=== PATIENT | female | born 1990 | race American Indian/Alaskan Native ===

== ENCOUNTER 2021-05-22 15:30 | Emergency (ER) | payer SELFPAY ==
[2021-05-22 16:42] LABS: Basophils % (Auto) 0.1 % (0.0-1.8); Eosinophils # (Auto) 0.1 K/mm3 (0.0-0.4); Eosinophils % (Auto) 1.9 % (0.0-4.3); Hematocrit 34.3 % (30.3-42.9); Hemoglobin 11.4 gm/dl (10.1-14.3); Lymphocytes # (Auto) 1.3 K/mm3 (1.2-5.4); Lymphocytes % (Auto) 28.2 % (13.4-35.0); Mean Corpuscular HGB Conc 33 % (30-34); Mean Corpuscular Volume 85 fl (79-97); Monocytes # (Auto) 0.4 K/mm3 (0.0-0.8); Monocytes % (Auto) 9.6 % (0.0-7.3); Platelet Count 142 K/mm3 (140-440); Red Blood Count 4.06 M/mm3 (3.65-5.03); Red Cell Distribution Width 14.2 % (13.2-15.2)
[2021-05-22 17:06] LABS: Alanine Aminotransferase 9 units/L (7-56); Albumin 4.3 g/dL (3.9-5); Blood Urea Nitrogen 7 mg/dL (7-17); Calcium 9.1 mg/dL (8.4-10.2); Hemolysis Index 28
[2021-05-22 17:07] LABS: BUN/Creatinine Ratio 14
[2021-05-22 19:21] VITALS: BP 106/61
--- NOTE | 2021-05-22 19:25 | Ultrasound Report ---
ULTRASOUND OBSTETRIC INDICATION / CLINICAL INFORMATION: , cramping, spotting. Clinical Gestational Age (GA) in weeks, days: 12 weeks 5 days TECHNIQUE: Transabdominal. COMPARISON: None available. FINDINGS: GESTATIONAL SAC: There is an oval fluid collection within the uterus measuring 3.4 cm in greatest neo meter. There are a few internal echoes within this fluid collection but no defined yolk sac or pole. The gestational sac diameter corresponds to 8 week 1 day measurement. Overall appearance is con sistent with an anembryonic EMBRYO/FETUS: No pole identified within the gestational sac.. ADNEXA: Both ovaries are well-visualized. There is a 1.6 cm complex mass within the left ovary probab ly representing complex corpus luteum cyst. FREE FLUID: None. ADDITIONAL FINDINGS: None. IMPRESSION: 1. 3.4 cm fluid collection within the uterus is present. The appearance is most suggestive of blighte d ovum but will need correlation with hCG levels. 2. No pole identified within the gestational sac. Signer Name: Mica Biggs MD Signed: 05/22/2021 7:21 PM Workstation Name: [id number]
--- NOTE | 2021-05-22 19:53 | Emergency Department Report ---
ED HPI - General Chief complaint: Vaginal Bleeding Stated complaint: ABD PAIN/POSS MISCARRIAGE/SPOTTING Time Seen by Provider: 05/22/21 15:52 Source: patient Mode of arrival: Ambulatory Limitations: No Limitations - History of Present Illness Initial comments: Patient is a 30-year-old female presents emergency room with complaints of lower abdominal cramping that began 2 days ago. She has associated vaginal spotting. She denies any heavy bleeding or passing clots. She states her last menstrual cycle was 02/22/2021. She states that she went to the [facility] on March 28 and had a positive urine test. She has not yet seen an INSTRUCTIONAL TECHNOLOGIST or had an ultrasound. She denies any fever, nausea, vomiting, diarrhea, urinary symptoms. No past medical history. No allergies to medications. G:/P: 2/A: 1 - Related Data Allergies Allergy/AdvReac Type Severity Reaction Status Date / Time No Known Allergies Allergy Verified 05/14/16 21:19 ED Review of Systems ROS: Stated complaint: ABD PAIN/POSS MISCARRIAGE/SPOTTING Other details as noted in HPI Comment: All other systems reviewed and negative ED Past Medical Hx - Past Medical History Previous Medical History?: Yes Hx Hypertension: No Hx Diabetes: No Hx Deep Vein Thrombosis: No Hx Renal Disease: No Hx Sickle Cell Disease: No Hx Seizures: No Hx Asthma: No - Surgical History Past Surgical History?: Yes Additional Surgical History: - Social History Smoking Status: Never Smoker Substance Use Type: None ED Physical Exam - General Limitations: No Limitations General appearance: alert, in no apparent distress - Head Head exam: Present: atraumatic, normocephalic - Eye Eye exam: Present: normal appearance - ENT ENT exam: Present: mucous membranes moist - Respiratory Respiratory exam: Present: normal lung sounds bilaterally. Absent: respiratory distress, wheezes, rales, rhonchi, stridor, chest wall tenderness, accessory muscle use, decreased breath sounds, prolonged expiratory - Cardiovascular Cardiovascular Exam: Present: regular rate, normal rhythm, normal heart sounds. Absent: systolic murmur, diastolic murmur, rubs, gallop - GI/Abdominal GI/Abdominal exam: Present: soft, normal bowel sounds. Absent: distended, tenderness, guarding, rebound, rigid - Neurological Exam Neurological exam: Present: alert, oriented X3 - Psychiatric Psychiatric exam: Present: normal affect, normal mood - Skin Skin exam: Present: warm, dry, intact ED Course Vital Signs 05/22/21 05/22/21 15:40 19:19 Temperature 98.9 F Pulse Rate 87 72 Respiratory 16 Rate Blood Pressure 123/70 Blood Pressure 106/61 [Left] O2 Sat by Pulse 100 100 Oximetry ED Medical Decision Making - Lab Data Result diagrams: 05/22/21 16:15 05/22/21 16:15 - Radiology Data Radiology results: report reviewed Ordering Physician: JAY RODRÍGUEZ Date of Service: 05/22/21 Procedure(s): US OB <= 14 weeks fetus Accession Number(s): [id number] cc: JAY RODRÍGUEZ ULTRASOUND OBSTETRIC INDICATION / CLINICAL INFORMATION: , cramping, spotting. Clinical Gestational Age (GA) in weeks, days: 12 weeks 5 days TECHNIQUE: Transabdominal. COMPARISON: None available. FINDINGS: GESTATIONAL SAC: There is an oval fluid collection within the uterus measuring 3.4 cm in greatest diameter. There are a few internal echoes within this fluid collection but no defined yolk sac or pole. The gestational sac diameter corresponds to 8 week 1 day m easurement. Overall appearance is consistent with an anembryonic EMBRYO/FETUS: No pole identified within the gestational sac.. ADNEXA: Both ovaries are well-visualized. There is a 1.6 cm complex mass within the left ovary probably representing complex corpus luteum cyst. FREE FLUID: None. ADDITIONAL FINDINGS: None. IMPRESSION: 1. 3.4 cm fluid collection within the uterus is present. The appearance is most suggestive of blighted ovum but will need correlation with hCG levels. 2. No pole identified within the gestational sac. Signer Name: Mica Biggs MD Signed: 05/22/2021 7:21 PM Workstation Name: [id number] Transcribed By: Dictated By: Mica Biggs MD Electronically Authenticated By: Mica Biggs MD Signed Date/Time: 05/22/211920 DD/ 15 TD/TT: - Medical Decision Making Patient is a 30-year-old female presents emergency room with complaints of lower abdominal cramping that began 2 days ago. She has associated vaginal spotting. She denies any heavy bleeding or passing clots. She states her last menstrual cycle was 02/22/2021. She states that she went to the health department on March 28 and had a positive urine test. She has not yet seen an INSTRUCTIONAL TECHNOLOGIST or had an ultrasound. She denies any fever, nausea, vomiting, diarrhea, urinary symptoms. No past medical history. No allergies to medications. G:/P: 2/A: 1. vitals are normal. No abdominal tenderness on exam, no guarding, no rebound, no rigidity, no peritoneal signs. [place] [address]. Patient is Rh+. OB ultrasound: 1. 3.4 cm fluid collection within the uterus is present. The appearance is most suggestive of blighted ovum but will need correlation with hCG levels. 2. No pole identified within the gestational sac. Discussed all results with patient and discussed ultrasound findings in detail with patient. Discussed the importance of very close INSTRUCTIONAL TECHNOLOGIST follow-up. Discussed the importance of returning to the emergency room in 2 days for repeat hCG quant and H&H if she is unable to follow-up with INSTRUCTIONAL TECHNOLOGIST. Discussed very strict return precautions in detail with patient. Advised patient Please follow-up with INSTRUCTIONAL TECHNOLOGIST. Please practice pelvic rest. Return to emergency room immediately for any new or worsening symptoms including but not limited to worsening pain, bleeding more than 1 pad an hour. Return to emergency room in the next 2 days for repeat of your lab test including your hcg quant and CBC. Critical care attestation.: If time is entered above; I have spent that time in minutes in the direct care of this critically ill patient, excluding procedure time. ED Disposition Clinical Impression: Anembryonic , Abdominal cramping, Vaginal spotting Disposition: 01 HOME / SELF CARE / HOMELESS Is pt being admited?: No Does the pt Need Aspirin: No Condition: Stable Instructions: Blighted Ovum Additional Instructions: Please follow-up with INSTRUCTIONAL TECHNOLOGIST. Please practice pelvic rest. Return to emergency room immediately for any new or worsening symptoms including but not limited to worsening pain, bleeding more than 1 pad an hour. Return to emergency room in the next 2 days for repeat of your lab test including your hcg quant and CBC. PAC [facility] in [place], [place] Address: [address] [place] [address] [address], [place] [address] Referrals: PRIMARY CAREMD [Primary Care Provider] - 2-3 Days TIGRE FERRARI MD [Staff Physician] - 2-3 Days Time of Disposition: 19:53 Print Language: BENGALI
== END 2021-05-22 20:23 | disposition home or self-care (01) ==
LOC: ED 15:30
DX: O26.851 Spotting complicating pregnancy, first trimester (principal); O02.0 Blighted ovum and nonhydatidiform mole; Z3A.12 12 weeks gestation of pregnancy
CPT/HCPCS: 36415; 76801; 76817; 80053; 84702; 85025; 86900; 86901; 99284

== ENCOUNTER 2021-05-25 07:19 | Emergency (ER) | payer SELFPAY ==
--- NOTE | 2021-05-25 08:14 | Emergency Department Report ---
ED Medical Clearance HPI - General Chief complaint: Medical Clearance Stated complaint: FOLLOW UP FROM MISCARRIAGE Time Seen by Provider: 05/25/21 08:11 Source: patient Mode of arrival: Ambulatory - History of Present Illness Initial comments: This is a 30-year-old -Japanese female who presents for repeat labs to follow-up on threatened miscarriage. Patient states she was seen in this emergency room 3 days ago and instructed to follow-up with an FEEDER ASSOCIATE or come back to the ER to rule out miscarriage. Last menstrual period was February 22, 2021, she is 12 or 13 weeks gestation, A1. She denies fever, chills, vaginal bleeding, abdominal pain, back pain, urinary frequency, urgency, discharge, or dysuria. Onset/Timin -: days(s) Reason for Medical Clearance: laboratory abnormality Traumatic Symptoms: denies traumatic injury Allergies/Adverse reactions: Allergies Allergy/AdvReac Type Severity Reaction Status Date / Time No Known Allergies Allergy Verified 05/14/16 21:19 ED Review of Systems ROS: Stated complaint: FOLLOW UP FROM MISCARRIAGE Other details as noted in HPI Constitutional: denies: chills, fever Respiratory: denies: cough, shortness of breath, wheezing Cardiovascular: denies: chest pain, palpitations Gastrointestinal: denies: abdominal pain, nausea, diarrhea Genitourinary: denies: urgency, dysuria, discharge Neurological: denies: headache, weakness, paresthesias Psychiatric: denies: anxiety, depression ED Past Medical Hx - Past Medical History Previous Medical History?: No Hx Hypertension: No Hx Diabetes: No Hx Deep Vein Thrombosis: No Hx Renal Disease: No Hx Sickle Cell Disease: No Hx Seizures: No Hx Asthma: No - Surgical History Past Surgical History?: Yes Additional Surgical History: - Social History Smoking Status: Never Smoker Substance Use Type: None ED Physical Exam - General Limitations: No Limitations General appearance: alert, in no apparent distress - Respiratory Respiratory exam: Present: normal lung sounds bilaterally. Absent: respiratory distress - Cardiovascular Cardiovascular Exam: Present: regular rate, normal rhythm. Absent: systolic murmur, diastolic murmur, rubs, gallop - GI/Abdominal GI/Abdominal exam: Present: soft, normal bowel sounds. Absent: distended, tend erness, guarding, rebound, rigid, organomegaly - Back Exam Back exam: Absent: CVA tenderness (R), CVA tenderness (L) - Neurological Exam Neurological exam: Present: alert, oriented X3, normal gait - Psychiatric Psychiatric exam: Present: normal affect, normal mood - Skin Skin exam: Present: warm, dry, intact, normal color. 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 Consulted FEEDER ASSOCIATE and spoke with Dr. Nichole who suggested patient wait for spontaneous or come into his office for a D&C. The patient agrees to follow-up in office for a D&C. Patient will be discharged home. ED Medical Decision Making - Lab Data Result diagrams: 05/25/21 08:46 Lab Results 05/25/21 05/25/21 Range/Units 08:46 08:46 WBC 5.9 (4.5-11.0) K/mm3 RBC 3.88 (3.65-5.03) M/mm3 Hgb 11.0 (10.1-14.3) gm/dl Hct 32.6 (30.3-42.9) % MCV 84 (79-97) fl MCH 28 (28-32) pg MCHC 34 (30-34) % RDW 14.2 (13.2-15.2) % Plt Count 140 (140-440) K/mm3 Lymph % (Auto) 21.2 (13.4-35.0) % [place] % (Auto) 8.4 H (0.0-7.3) % Eos % (Auto) 1.5 (0.0-4.3) % Baso % (Auto) 0.1 (0.0-1.8) % Lymph # (Auto) 1.2 (1.2-5.4) K/mm3 [place] # (Auto) 0.5 (0.0-0.8) K/mm3 Eos # (Auto) 0.1 (0.0-0.4) K/mm3 Baso # (Auto) 0.0 (0.0-0.1) K/mm3 Seg Neutrophils % 68.8 (40.0-70.0) % Seg Neutrophils # 4.0 (1.8-7.7) K/mm3 HCG, Quant 81433 H (0-4) mIU/mL Vital Signs 05/25/21 12:19 Temperature 99.3 F Pulse Rate 63 Respiratory 16 Rate Blood Pressure 125/79 [Left] O2 Sat by Pulse 100 Oximetry - Medical Decision Making This is a 30-year-old female that presents for follow-up of threatened miscarriage. Denies active vaginal bleeding. Vitals are stable and patient in no acute distress. Denies vaginal discharge, vaginal bleeding, hematuria, or UTI symptoms. Work-up: CBC & hCG quant. Urinalysis unremarkable, hCG quant [address]. OB ultrasound from 2 days ago shows blighted ovum. Patient was presented to the attending Dr. Clay who agreed with consulting OG/MANAGING COGNITIVE ENGINEER. Dr. Nichole was consulted for the patient to options. She can wait for spontaneous or come into his office for D&C. Patient agreed to follow-up in office for D&C. Patient was discharged home stable with strict return instructions. ED Disposition Clinical Impression: Blighted ovum Disposition: 01 HOME / SELF CARE / HOMELESS Is pt being admited?: No Condition: Stable Instructions: Blighted Ovum Additional Instructions: Follow-up with your FEEDER ASSOCIATE Dr. Nichole for D&C as discussed. Please call [phone] to make an appointment with his office. Referrals: SHREYA NICHOLE MD [Staff Physician] - 3-5 Days [facility] [Provider Group] - 3-5 Days Forms: Work/School Release Form(ED) Time of Disposition: 12:07
[2021-05-25 09:18] LABS: Basophils % (Auto) 0.1 % (0.0-1.8); Eosinophils # (Auto) 0.1 K/mm3 (0.0-0.4); Eosinophils % (Auto) 1.5 % (0.0-4.3); Hematocrit 32.6 % (30.3-42.9); Lymphocytes # (Auto) 1.2 K/mm3 (1.2-5.4); Lymphocytes % (Auto) 21.2 % (13.4-35.0); Mean Corpuscular HGB Conc 34 % (30-34); Mean Corpuscular Volume 84 fl (79-97); Monocytes # (Auto) 0.5 K/mm3 (0.0-0.8); Monocytes % (Auto) 8.4 % (0.0-7.3); Platelet Count 140 K/mm3 (140-440); Red Blood Count 3.88 M/mm3 (3.65-5.03); Red Cell Distribution Width 14.2 % (13.2-15.2)
[2021-05-25 12:20] VITALS: BP 125/79
== END 2021-05-25 12:27 | disposition home or self-care (01) ==
LOC: ED 07:19
DX: O02.0 Blighted ovum and nonhydatidiform mole (principal); Z79.899 Other long term (current) drug therapy; Z3A.12 12 weeks gestation of pregnancy
CPT/HCPCS: 36415; 84702; 85025; 99283

== ENCOUNTER 2021-06-01 08:25 | Emergency (ER) | payer OTHER ==
[2021-06-01] MEDS ORDERED: SODIUM CHLORIDE 0.9% 1000 ML 1,000 ML IV ONE (08:40)
--- NOTE | 2021-06-01 09:11 | Cat Scan Report ---
CT BRAIN: 06/01/2021 INDICATION / CLINICAL INFORMATION: headache s/p syncope episode. COMPARISON: None available. FINDINGS: BRAIN/INTRACRANIAL STRUCTURES: Unenhanced CT images of the brain demonstrate no evidence of acute int racranial abnormality. Ventricles and sulci are normal in size and shape. There is no evidence of acute ischemic injury, hemorrhage, or mass. There are no abnormal extra-axial fluid collections. EXTRACRANIAL STRUCTURES: Unremarkable. IMPRESSION: Negative unenhanced CT of the brain. All CT scans at this location are performed using dose reduction to ALARA by means of automated expos ure control. Signer Name: Armando Early MD Signed: 06/01/2021 9:07 AM Workstation Name: [id number]
--- NOTE | 2021-06-01 09:15 | Cat Scan Report ---
FACIAL CT 06/01/2021 HISTORY: headache s/p syncope episode. FINDINGS: CT images of the facial structures were obtained. Images are evaluated in the axial, velasquez l, and sagittal plane. There is no evidence of acute abnormality. Some mild mucosal thickening is present in ethmoid air cells. Paranasal sinuses are otherwise clear. There is no evidence of acute osseous injury. Visualized portions of the orbits and skull base are unremarkable. Incidental note is made of some so ft tissue density material within the osseous portions of the external auditory canals bilaterally, m ost likely cerumen. IMPRESSION: No significant abnormality. All CT scans at this location are performed using dose reduction to ALARA by means of automated expos ure control. Signer Name: Armando Early MD Signed: 06/01/2021 9:10 AM Workstation Name: [id number]
[2021-06-01 10:02] LABS: Hemoglobin 8.8 gm/dl (10.1-14.3); Mean Corpuscular HGB Conc 34 % (30-34); Mean Corpuscular Volume 84 fl (79-97); Platelet Count 126 K/mm3 (140-440); Red Blood Count 3.09 M/mm3 (3.65-5.03); Red Cell Distribution Width 14.5 % (13.2-15.2)
[2021-06-01 10:14] LABS: INR 1.05 (0.87-1.13)
--- NOTE | 2021-06-01 10:14 | Emergency Department Report ---
ED Syncope HPI - General Chief Complaint: Syncope Stated Complaint: MISCARRIAGE/FAINTED Time Seen by Provider: 06/01/21 08:35 Source: patient, RN notes reviewed Exam Limitations: no limitations - History of Present Illness Initial Comments: This is a 30-year-old female nontoxic, well nourished in appearance, no acute signs of distress presents to the ED with c/o of syncopal episode that occurred last night twice. Patient stated has some aching headaches. Patient stated prior to syncopal episode she had a miscarriage of sac that was seen and while passing this she became dizzy and had a syncopal episode. Patient stated that she did not seen some more blood in the toilet and then had a syncopal episode again which hit her left side of her face. Patient otherwise denies any other complaints or symptoms. Denies any neck or back pain. Patient stated that since last night her vaginal bleeding has significantly improved and are less. Patient denies any pelvic pain or abdominal pain. 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 Patient describes headache as diffuse with level of 3 out of 10. Patient denies thunderclap headache. Patient denies any radiation of pain. Patient denies any visual changes. Patient denies worse headache. Patient denies any numbness, tingling, fever, chills, nausea, vomiting, chest pain, shortness of breath, stiff neck. Patient denies facial drooping or one sided weakness. Patient denies any radiation of pain. Patient denies any allergies or significant past medical history. Timing/Prior Episodes: no prior history Precipitating Factors: Positive: lightheadedness Context: sitting Loss of Consciousness: brief (seconds) Current Symptoms: back to normal, headache. denies: blurred vision, chest pain, diaphoresis, dizziness, injury, lightheadedness, loss of bladder control, loss of bowel control, motionless, nausea, pale, shallow/rapid breathing, weak/absent pulse, weakness - Related Data Allergies/Adverse Reactions: Allergies No Known Allergies Allergy (Verified 05/14/16 21:19) Home Medications: Ambulatory Orders Naproxen 500 mg PO Q12H PRN #12 tablet 06/01/21 cephALEXin [Keflex] 500 mg PO Q8HR #21 cap 06/01/21 ED Review of Systems ROS: Stated complaint: MISCARRIAGE/FAINTED Other details as noted in HPI Comment: All other systems reviewed and negative Constitutional: denies: chills, fever Eyes: denies: eye pain, eye discharge, vision change ENT: denies: ear pain, throat pain Respiratory: denies: cough, shortness of breath, wheezing Cardiovascular: denies: chest pain, palpitations Endocrine: no symptoms reported Gastrointestinal: denies: abdominal pain, nausea, diarrhea Genitourinary: denies: urgency, dysuria, discharge Musculoskeletal: denies: back pain, joint swelling, arthralgia Skin: denies: rash, lesions Neurological: headache. denies: weakness, numbness, paresthesias, confusion, abnormal gait, vertigo Psychiatric: denies: anxiety, depression Hematological/Lymphatic: denies: easy bleeding, easy bruising ED Past Medical Hx - Past Medical History Hx Hypertension: No Hx Diabetes: No Hx Deep Vein Thrombosis: No Hx Renal Disease: No Hx Sickle Cell Disease: No Hx Seizures: No Hx Asthma: No - Surgical History Additional Surgical History: - Social History Smoking Status: Never Smoker Substance Use Type: None - Medications Home Medications: Home Medications Medication Instructions Recorded Confirmed Last Taken Type Naproxen 500 mg PO Q12H PRN #12 tablet 06/01/21 Unknown Rx cephALEXin [Keflex] 500 mg PO Q8HR #21 cap 06/01/21 Unknown Rx ED Physical Exam - General Limitations: No Limitations General appearance: alert, in no apparent distress - Head Head exam: Present: normocephalic - Expanded Head Exam Expanded Head exam: Present: contusion, general tenderness. Absent: laceration, abrasion, hematoma, racoon eyes, barraza's sign 1 - Ecchymosis and contusion here - Eye Eye exam: Present: normal appearance, PERRL, EOMI Pupils: Present: normal accommodation - ENT ENT exam: Present: normal exam, normal orophraynx - Neck Neck exam: Present: normal inspection, full ROM. Absent: tenderness, meningismus, lymphadenopathy - Expanded Neck Exam Expanded Neck exam: Absent: tenderness, midline deformity, anterior neck swelling, thyroid mass, carotid bruit, tracheal deviation - Respiratory Respiratory exam: Present: normal lung sounds bilaterally. Absent: respiratory distress, wheezes, rales, rhonchi, stridor, chest wall tenderness, accessory muscle use, decreased breath sounds, prolonged expiratory - Cardiovascular Cardiovascular Exam: Present: normal rhythm, normal heart sounds. Absent: irregular rhythm, systolic murmur, diastolic murmur, rubs, gallop - GI/Abdominal GI/Abdominal exam: Present: soft, normal bowel sounds. Absent: distended, tenderness, guarding, rebound, rigid, diminished bowel sounds - Extremities Exam Extremities exam: Present: normal inspection, full ROM, normal capillary refill. Absent: tenderness - Back Exam Back exam: Present: normal inspection, full ROM. Absent: tenderness, CVA tenderness (R), CVA tenderness (L), muscle spasm, paraspinal tenderness, vertebral tenderness, rash noted - Neurological Exam Neurological exam: Present: alert, oriented X3, normal gait - Psychiatric Psychiatric exam: Present: normal affect, normal mood - Skin Skin exam: Present: warm, dry, intact, normal color. Absent: rash ED Course Vital Signs 06/01/21 06/01/21 08:34 11:26 Temperature 98.6 F Pulse Rate 108 H 82 Respiratory 20 16 Rate Blood Pressure 112/69 102/67 [Right] O2 Sat by Pulse 98 100 Oximetry - Reevaluation(s) Reevaluation #1: 06/01/21 10:16 Patient is speaking in full sentences with no signs of distress noted. ED Medical Decision Making - Lab Data Result diagrams: 06/01/21 09:12 06/01/21 09:12 Lab Results 06/01/21 06/01/21 06/01/21 Range/Units 09:12 09:12 09:12 WBC 8.5 (4.5-11.0) K/mm3 RBC 3.09 L (3.65-5.03) M/mm3 Hgb 8.8 L (10.1-14.3) gm/dl Hct 26.0 L (30.3-42.9) % MCV 84 (79-97) fl MCH 29 (28-32) pg MCHC 34 (30-34) % RDW 14.5 (13.2-15.2) % Plt Count 126 L (140-440) K/mm3 PT 14.2 (12.2-14.9) Sec. INR 1.05 (0.87-1.13) APTT 29.0 (24.2-36.6) Sec. Sodium 138 (137-145) mmol/L Potassium 4.0 (3.6-5.0) mmol/L Chloride 103.5 (98-107) mmol/L Carbon Dioxide 22 (22-30) mmol/L Anion Gap 17 mmol/L BUN 8 (7-17) mg/dL Creatinine 0.5 L (0.6-1.2) mg/dL Estimated GFR > 60 ml/min BUN/Creatinine Ratio 16 % Glucose 97 (65-100) mg/dL Calcium 8.7 (8.4-10.2) mg/dL Total Bilirubin 0.50 (0.1-1.2) mg/dL AST 10 (5-40) units/L ALT 7 (7-56) units/L Alkaline Phosphatase 41 (35-129) units/L Total Protein 6.5 (6.3-8.2) g/dL Albumin 4.0 (3.9-5) g/dL Albumin/Globulin Ratio 1.6 % Urine Color (Yellow) Urine Turbidity (Clear) Urine pH (5.0-7.0) Ur Specific [place] (1.003-1.030) Urine Protein (Negative) mg/dL Urine Glucose (UA) (Negative) mg/dL Urine Ketones (Negative) mg/dL Urine Blood (Negative) Urine Nitrite (Negative) Urine Bilirubin (Negative) Urine Urobilinogen (<2.0) mg/dL Ur Leukocyte Esterase (Negative) Urine WBC (Auto) (0.0-6.0) /HPF Urine RBC (Auto) (0.0-6.0) /HPF 06/01/21 Range/Units 09:58 WBC (4.5-11.0) K/mm3 RBC (3.65-5.03) M/mm3 Hgb (10.1-14.3) gm/dl Hct (30.3-42.9) % MCV (79-97) fl MCH (28-32) pg MCHC (30-34) % RDW (13.2-15.2) % Plt Count (140-440) K/mm3 PT (12.2-14.9) Sec. INR (0.87-1.13) APTT (24.2-36.6) Sec. Sodium (137-145) mmol/L Potassium (3.6-5.0) mmol/L Chloride (98-107) mmol/L Carbon Dioxide (22-30) mmol/L Anion Gap mmol/L BUN (7-17) mg/dL Creatinine (0.6-1.2) mg/dL Estimated GFR ml/min BUN/Creatinine Ratio % Glucose (65-100) mg/dL Calcium (8.4-10.2) mg/dL Total Bilirubin (0.1-1.2) mg/dL AST (5-40) units/L ALT (7-56) units/L Alkaline Phosphatase (35-129) units/L Total Protein (6.3-8.2) g/dL Albumin (3.9-5) g/dL Albumin/Globulin Ratio % Urine Color Red (Yellow) Urine Turbidity Turbid (Clear) Urine pH 6.0 (5.0-7.0) Ur Specific [place] 1.022 (1.003-1.030) Urine Protein >500 (Negative) mg/dL Urine Glucose (UA) 50 (Negative) mg/dL Urine Ketones Tr (Negative) mg/dL Urine Blood Lg (Negative) Urine Nitrite Neg (Negative) Urine Bilirubin Neg (Negative) Urine Urobilinogen < 2.0 (<2.0) mg/dL Ur Leukocyte Esterase Tr (Negative) Urine WBC (Auto) 28.0 H (0.0-6.0) /HPF Urine RBC (Auto) > 182.0 (0.0-6.0) /HPF - EKG Data 06/01/21 11:30 Normal sinus rhythm at [address] or T wave normalities. Reviewed and signed by MD - Radiology Data [facility] [address] [place] [address] Cat Scan Report Signed Patient: SHAYE GONZALEZ MR#: [id number] 33 : 1990 Acct:[id number] Age/Sex: 30 / F ADM Date: 06/01/21 Loc: ED Attending Dr: Ordering Physician: DENISE PEREZ NP Date of Service: 06/01/21 Procedure(s): CT head/brain wo con Accession Number(s): [id number] cc: DENISE PEREZ NP CT BRAIN: 06/01/2021 INDICATION / CLINICAL INFORMATION: headache s/p syncope episode. COMPARISON: None available. FINDINGS: BRAIN/INTRACRANIAL STRUCTURES: Unenhanced CT images of the brain demonstrate no evidence of acute intracranial abnormality. Ventricles and sulci are normal in size and shape. There is no evidence of acute ischemic injury, hemorrhage, or mass. There are no abnormal extra- axial fluid collections. EXTRACRANIAL STRUCTURES: Unremarkable. IMPRESSION: Negative unenhanced CT of the brain. All CT scans at this location are performed using dose reduction to ALARA by means of automated exposure control. Signer Name: Armando Early MD Signed: 06/01/2021 9:07 AM Workstation Name: [id number] Transcribed By: RIANA Dictated By: Armando Early MD Electronically Authenticated By: Armando Early MD Signed Date/Time: 06/01/21906 DD/ 4 TD/TT: [facility] [address] [place] [address] Cat Scan Report Signed Patient: SHAYE GONZALEZ MR#: [id number] [birth year] : 1990 Acct:[id number] Age/Sex: 30 / F ADM Date: 06/01/21 Loc: ED Attending Dr: Ordering Physician: DENISE PEREZ NP Date of Service: 06/01/21 Procedure(s): CT facial bones wo con Accession Number(s): [id number] cc: DENISE PEREZ NP FACIAL CT 06/01/2021 HISTORY: headache s/p syncope episode. FINDINGS: CT images of the facial structures were obtained. Images are evaluated in the axial, coronal, and sagittal plane. There is no evidence of acute abnormality. Some mild mucosal thickening is present in ethmoid air cells. Paranasal sinuses are otherwise clear. There is no evidence of acute osseous injury. Visualized portions of the orbits and skull base are unremarkable. Incidental note is made of some soft tissue density material within the osseous portions of the external auditory canals bila terally, most likely cerumen. IMPRESSION: No significant abnormality. All CT scans at this location are performed using dose reduction to ALARA by means of automated exposure control. Signer Name: Armando Early MD Signed: 06/01/2021 9:10 AM Workstation Name: [id number] Transcribed By: AO Dictated By: Armando Early MD Electronically Authenticated By: Armando Early MD Signed Date/Time: 06/01/21909 DD/ 6 TD/TT: - Medical Decision Making 30-year-old female that presents with syncopal episode with facial contusion. Patient is stable and was examined by me. Patient is notified of the lab results and CT scans with no questions noted by the patient. Patient be discha rged with Keflex due to urine showing elevated WBCs and RBC. Patient received medical treatment in ER with 1 L normal saline. Patient was instructed to follow-up with a primary care doctor in 3-5 days or if symptoms worsen and continue return to emergency room as soon as possible. At time of discharge, the patient does not seem toxic or ill in appearance. No acute signs of distress noted. Patient agrees to discharge treatment plan of care. No further questions noted by the patient. Critical care attestation.: If time is entered above; I have spent that time in minutes in the direct care of this critically ill patient, excluding procedure time. ED Disposition Clinical Impression: Syncope Qualifiers: Syncope type: unspecified Qualified Code(s): R55 - Syncope and collapse UTI (urinary tract infection) Qualifiers: Urinary tract infection type: acute cystitis Hematuria presence: with hematuria Qualified Code(s): N30.01 - Acute cystitis with hematuria Facial contusion Qualifiers: Encounter type: initial encounter Qualified Code(s): S00.83XA - Contusion of other part of head, initial encounter Disposition: HOME / SELF CARE / HOMELESS Is pt being admited?: No Does the pt Need Aspirin: No Condition: Stable Instructions: Syncope (ED), Facial or Scalp Contusion, Syncope, [id number] Additional Instructions: Follow-up with a primary care doctor in 3-5 days or if symptoms worsen and continue return to emergency room as soon as possible. Prescriptions: cephALEXin [Keflex] 500 mg PO Q8HR #21 cap Naproxen 500 mg PO Q12H PRN #12 tablet PRN Reason: Pain , Severe (7-10) Referrals: SUDHAKAR WILKINSON MD [Primary Care Provider] - 3-5 Days BRIDGET GONZALES MD [Staff Physician] - 3-5 Days Forms: Work/School Release Form(ED) Time of Disposition: 11:40
[2021-06-01 10:30] LABS: Alanine Aminotransferase 7 units/L (7-56); Blood Urea Nitrogen 8 mg/dL (7-17); Calcium 8.7 mg/dL (8.4-10.2); Hemolysis Index 0
[2021-06-01 10:33] LABS: BUN/Creatinine Ratio 16
[2021-06-01 10:49] LABS: Bilirubin,Urine NEG (Negative); Blood,Urine LG (Negative); Color,Urine Red (Yellow); Urobilinogen,Urine < 2.0 mg/dL (<2.0)
[2021-06-01 10:57] LABS: Protein,Urine >500 mg/dL (Negative); RBC,Urine > 182.0 /HPF (0.0-6.0)
[2021-06-01 11:27] VITALS: BP 102/67
[2021-06-01 17:17] LABS: Total Cells Counted 100
--- NOTE | 2021-06-03 08:42 | Electrocardiograph Report ---
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
--- NOTE | 2021-06-04 12:20 | Electrocardiograph Report ---
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
== END 2021-06-01 12:16 | disposition home or self-care (01) ==
LOC: ED 08:25
DX: S00.83XA Contusion of other part of head, initial encounter (principal); R55 Syncope and collapse; N39.0 Urinary tract infection, site not specified; Z79.899 Other long term (current) drug therapy; X58.XXXA Exposure to other specified factors, initial encounter; Y93.89 Activity, other specified; Y92.488 Other paved roadways as the place of occurrence of the external cause; Y99.8 Other external cause status
CPT/HCPCS: 36415; 70450; 70486; 80053; 81001; 85007; 85025; 85610; 85730; 87086; 93005; 96360; 99284; J7030